=== PATIENT | male | born 1960 | race Caucasian/White ===

== ENCOUNTER 2016-07-27 18:05 | Emergency (ER) | payer BC ==
[2016-07-27] MEDS ORDERED: Sodium Chloride 0.9% 2.5 ML Syringe FLUSH PRN (18:09)
[2016-07-27] MEDS ORDERED: Sodium Chloride 0.9% 10 ML Syringe FLUSH PRN (18:09)
--- NOTE | 2016-07-27 18:15 | EDM.PDOC ---
ED HPI GENERAL MEDICAL PROBLEM - General Stated Complaint: SLURRED SPEECH Time Seen by Provider: 07/27/16 18:06 Source of Information: Reports: Patient History Limitations: Reports: No Limitations - History of Present Illness INITIAL COMMENTS - FREE TEXT/NARRATIVE: History of present illness: []Patient started having slurred speech and weakness and feels like he walks drunk 2 AM this morning. He went to [facility] ED this afternoon and had a head CT scan that was normal around 1:30 to 2 PM today. He had to sign out AMA from [facility] ED because he had his dog in the car that he had to check into a kennel. His symptoms have not changed throughout the day. Patient ambulated into the ED. Review of systems: As per history of present illness and below otherwise all systems reviewed and negative. Past medical history: As per history of present illness and as reviewed below otherwise noncontributory. Surgical history: As per history of present illness and as reviewed below otherwise noncontributory. Social history: No reported history of drug or alcohol abuse. Family history: As per history of present illness and as reviewed below otherwise noncontributory. Physical exam:BP 180/93, P116, RR 16, 02%96RA, Glu-147 General: Well developed, well nourished in NAD, slurred speech HEENT: Atraumatic, normocephalic, pupils reactive, negative for conjunctival pallor or scleral icterus, mucous membranes moist, throat clear, neck supple, nontender, trachea midline. Deviation of tongue to the right Lungs: Clear to auscultation, breath sounds equal bilaterally, chest nontender. Heart: S1S2, regular, negative for clicks, rubs, or JVD. Abdomen: Soft, nondistended, nontender. Negative for masses or hepatosplenomegaly. Negative for costovertebral tenderness. Pelvis: Stable nontender. Genitourinary: Deferred. Rectal: Deferred. Extremities: Atraumatic, negative for cords or calf pain. Neurovascular unremarkable. Neuro: Awake, alert, oriented. Right-sided facial droop. Upper extremity strength equal, finger to nose and heel to keith are somewhat clumsy with no gross past-pointing. Diagnostics: []CT here is negative CBC chemistry and coags are within normal limits, alcohol is negative drug screen is pending at the time of this dictation. Therapeutics: []Patient was given aspirin in the ED Impression: []CVA Plan: []Transfer to [facility] for relation by neurology and further stroke workup Definitive disposition and diagnosis as appropriate pending reevaluation and review of above. - Related Data Allergies Allergy/AdvReac Type Severity Reaction Status Date / Time No Known Allergies Allergy Verified 07/27/16 18:21 Home Meds: Home Meds Dulaglutide [Trulicity] 0.75 mg SQ 07/27/16 [History] Valsartan 40 mg PO 07/27/16 [History] amLODIPine Besylate [Amlodipine Besylate] 10 mg PO 07/27/16 [History] metFORMIN [Glucophage XR] 500 mg PO BIDMEALS 07/27/16 [History] ED ROS GENERAL - Review of Systems Review Of Systems: See Below (See history of present illness) ED EXAM, NEURO - Physical Exam Exam: See Below (See history of present illness) Course - Vital Signs Last Recorded V/S: Last Vital Signs Temp 36.6 C 07/27/16 19:44 Pulse 98 07/27/16 19:44 Resp 20 07/27/16 19:44 BP 148/88 H 07/27/16 19:44 Pulse Ox 95 07/27/16 19:44 - Orders/Labs/Meds Orders: Active Orders 24 hr Category Date Time Status EKG Documentation Completion [RC] STAT Care 07/27/16 18:09 Active Head wo Cont [CT] Stat Exams 07/27/16 18:10 Taken Saline Lock Insert [OM.PC] Stat Oth 07/27/16 18:09 Ordered Labs: Laboratory Tests 07/27/16 07/27/16 07/27/16 Range/Units 18:05 18:05 18:05 WBC 8.82 (4.0-11.0) K/uL RBC 5.81 (4.50-5.90) M/uL Hgb 18.4 H (13.0-17.0) g/dL Hct 51.1 H (38.0-50.0) % MCV 88.0 (80.0-98.0) fL MCH 31.7 (27.0-32.0) pg MCHC 36.0 (31.0-37.0) g/dL RDW Std Deviation 44.6 (28.0-62.0) fl RDW Coeff of Maria Alejandra 14 (11.0-15.0) % Plt Count 227 (150-400) K/uL MPV 10.60 (7.40-12.00) fL Neut % (Auto) 67.5 (48.0-80.0) % Lymph % (Auto) 22.7 (16.0-40.0) % Latimer % (Auto) 7.1 (0.0-15.0) % Eos % (Auto) 2.2 (0.0-7.0) % Baso % (Auto) 0.5 (0.0-1.5) % Neut # (Auto) 6.0 H (1.4-5.7) K/uL Lymph # (Auto) 2.0 (0.6-2.4) K/uL Latimer # (Auto) 0.6 (0.0-0.8) K/uL Eos # (Auto) 0.2 (0.0-0.7) K/uL Baso # (Auto) 0.0 (0.0-0.1) K/uL Nucleated RBC % 0.0 /100WBC Nucleated RBCs # 0 K/uL INR 0.98 (0.86-1.11) APTT 26.1 (18.6-31.3) SEC Sodium 138 (136-146) mmol/L Potassium 4.1 (3.5-5.1) mmol/L Chloride 101 (98-110) mmol/L Carbon Dioxide 22 (21-31) mmol/L BUN 17 (6.0-23.0) mg/dL Creatinine 1.1 (0.6-1.5) mg/dL Est Cr Clr Drug Dosing 84.26 mL/min Estimated GFR (MDRD) > 60.0 ml/min Glucose 177 H (60-110) mg/dL Calcium 9.6 (8.8-10.8) mg/dL Total Bilirubin 0.9 (0.1-1.5) mg/dL AST 23 (5-40) IU/L ALT 38 (8-54) IU/L Alkaline Phosphatase 72 (40-150) Troponin I (0.0-0.29) NG/ML Total Protein 7.8 (6.0-8.0) g/dL Albumin 4.8 (3.5-5.0) g/dL Globulin 3.0 (2.0-3.5) g/dL Albumin/Globulin Ratio 1.6 (1.3-2.8) Ethyl Alcohol mg/dL 07/27/16 07/27/16 Range/Units 18:05 18:05 WBC (4.0-11.0) K/uL RBC (4.50-5.90) M/uL Hgb (13.0-17.0) g/dL Hct (38.0-50.0) % MCV (80.0-98.0) fL MCH (27.0-32.0) pg MCHC (31.0-37.0) g/dL RDW Std Deviation (28.0-62.0) fl RDW Coeff of Maria Alejandra (11.0-15.0) % Plt Count (150-400) K/uL MPV (7.40-12.00) fL Neut % (Auto) (48.0-80.0) % Lymph % (Auto) (16.0-40.0) % Latimer % (Auto) (0.0-15.0) % Eos % (Auto) (0.0-7.0) % Baso % (Auto) (0.0-1.5) % Neut # (Auto) (1.4-5.7) K/uL Lymph # (Auto) (0.6-2.4) K/uL Latimer # (Auto) (0.0-0.8) K/uL Eos # (Auto) (0.0-0.7) K/uL Baso # (Auto) (0.0-0.1) K/uL Nucleated RBC % /100WBC Nucleated RBCs # K/uL INR (0.86-1.11) APTT (18.6-31.3) SEC Sodium (136-146) mmol/L Potassium (3.5-5.1) mmol/L Chloride (98-110) mmol/L Carbon Dioxide (21-31) mmol/L BUN (6.0-23.0) mg/dL Creatinine (0.6-1.5) mg/dL Est Cr Clr Drug Dosing mL/min Estimated GFR (MDRD) ml/min Glucose (60-110) mg/dL Calcium (8.8-10.8) mg/dL Total Bilirubin (0.1-1.5) mg/dL AST (5-40) IU/L ALT (8-54) IU/L Alkaline Phosphatase (40-150) Troponin I < 0.10 (0.0-0.29) NG/ML Total Protein (6.0-8.0) g/dL Albumin (3.5-5.0) g/dL Globulin (2.0-3.5) g/dL Albumin/Globulin Ratio (1.3-2.8) Ethyl Alcohol < 10.0 mg/dL Meds: Medications Discontinued Medications Generic Name Dose Route Start Last Admin Trade Name Freq PRN Reason Stop Dose Admin Aspirin 324 mg 07/27/16 18:30 07/27/16 18:41 Aspirin PO 07/27/16 18:31 324 mg ONETIME ONE Administration Sodium Chloride 10 ml 07/27/16 18:09 Saline Flush FLUSH ASDIRECTED PRN Keep Vein Open Sodium Chloride 2.5 ml 07/27/16 18:09 Saline Flush FLUSH ASDIRECTED PRN Keep Vein Open Departure - Departure Time of Disposition: 20:10 Disposition: DC/Tfer to Acute Hospital 02 Condition: fair Clinical Impression: CVA (cerebral vascular accident) Qualifiers: CVA mechanism: unspecified Qualified Code(s): I63.9 - Cerebral infarction, unspecified - Discharge Information Referrals: PCP,None [Primary Care Provider] - Forms: ED Department Discharge - My Orders Last 24 Hours: My Active Orders 07/27/16 18:09 EKG Documentation Completion [RC] STAT Saline Lock Insert [OM.PC] Stat 07/27/16 18:10 Head wo Cont [CT] Stat - Assessment/Plan Last 24 Hours: My Active Orders 07/27/16 18:09 EKG Documentation Completion [RC] STAT Saline Lock Insert [OM.PC] Stat 07/27/16 18:10 Head wo Cont [CT] Stat
[2016-07-27] MEDS ORDERED: Aspirin 81 MG Tab.Chew PO ONE (18:30)
[2016-07-27 18:41] LABS: CHLORIDE,CL 101 mmol/L (98-110); SODIUM,NA 138 mmol/L (136-146)
[2016-07-27 19:45] VITALS: BP 148/88
--- NOTE | 2016-07-28 10:47 | CT ---
EXAM DATE: 07/27/16 PATIENT'S AGE: 55 Patient: ARANZA MENJIVAR Facility: [place], [place] Site . Site : [id number] Study: CT Head STROKE PROTOCOL [id number]/[id number] 6:19:01 PM Ordering Physician: Virgil Juarez Final Report: INDICATION: facial weakness, slurred speach TECHNIQUE: CT Head without i.v. contrast. COMPARISON: None FINDINGS: CSF spaces: Within normal limits for age. Brain parenchyma: The brain parenchyma is normal in appearance with preservation of the pfeiffer-white matter junction. No sign of mass, hemorrhage, or midline shift. Skull base and calvarium: The visualized paranasal sinuses are well aerated. The mastoid air cells are clear. The visualized orbits are grossly unremarkable. No skull fractures are seen. IMPRESSION: 1. No CT evidence of acute infarct, hemorrhage, or mass effect seen. The findings were discussed with Dr. Herman at 6:30 p.m. Dictated by: Gulshan Landon MD @ 07/27/2016 18:30:15 (Electronic Signature) Report Signed by Proxy. [facility]ITALYulia
== END 2016-07-27 20:10 ==
LOC: MW.ED 18:05
DX: I63.9 Cerebral infarction, unspecified (principal)
CPT/HCPCS: 36415; 70450; 80053; 84484; 85025; 85610; 85730; 93005; 99285; A9270; G0480